=== PATIENT | male | born 1975 | race Two or more races ===

== ENCOUNTER 2016-08-22 16:35 | Emergency (ER) | payer SELFPAY ==
[~2016-08-22] VITALS: Ht 177.8 cm; Wt 81.6 kg
[2016-08-22] MEDS ORDERED: LORazepam 1mg tab ORAL ONE (16:45)
--- NOTE | 2016-08-22 16:48 | Emergency Room Report ---
History of Present Illness General Chief Complaint: Behavioral Complaint Source: Patient, EMS Present Illness HPI The patient was brought in by EMS. [facility] said that the patient had involuntary muscle movements but denied seizure activity. The patient complains of depression. He states that his left him his having problems with his business multiple other problems for the past 3 years. He's not taking medication for this aside from cannabis and alcohol. He denies any other ingestion today. He states he feels like he is going crazy and needs an evaluation of his head. He denies suicidal or homicidal ideation. No fevers, NVD, rashes, joint pain, CARTER, dyspnea. 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 [place] Reviewed Nursing Documentation: PMH: Agreed, PSxH: Agreed Nursing Documentation-PMH History Of Psychiatric Problem: Yes - depression Review of Systems All Other Systems: negative except mentioned in HPI Physical Exam Vital Signs Date Time Temp Pulse Resp B/P Pulse Ox O2 Delivery O2 Flow Rate FiO2 08/22/16 16:29 98.6 124 25 152/95 100 Room Air Sp02 EP Interpretation: reviewed, normal General Appearance: well appearing, no apparent distress, GCS 15 Head: normocephalic Eyes: bilateral eye PERRL - 4 mm bilat, bilateral eye Scleral Injection ENT: moist mucus membranes Neck: supple Respiratory: lungs clear, normal breath sounds Cardiovascular #1: tachycardia Cardiovascular #2: 2+ radial (L) Gastrointestinal: normal inspection, normal bowel sounds, non tender, no mass, non-distended Musculoskeletal: back normal, gait/station normal, normal range of motion Neurologic: alert, oriented x3, motor strength/tone normal, DTRs symmetric, sensory intact, cerebellar normal, normal gait, speech normal Psychiatric: no suicidal/homicidal ideation, anxious Skin: normal inspection, warm/dry Medical Decision Making Diagnostic Impression: Primary Impression: Behavioral change Additional Impressions: AMA Depression Qualified Codes: F32.9 - Major depressive disorder, single episode, unspecified ER Course The patient presents with agitation and depression. Differential includes major depression exacerbation, electrolyte imbalance, other toxic ingestion, amongst others. The patient has a nonfocal neurologic exam at this time and a CT is not indicated. We need to exclude rhabdomyolysis and other electrolyte abnormalities. The patient needs IV hydration. The patient will be evaluated EKG, chest x-ray and labs. The patient is refusing to have blood work done. He states he's afraid of needles. The patient denies suicidal ideation. I told him that he could if he doesn't get laboratory evaluation. He understands this. He states he is feeling better and refuses to have blood work done. He signed an AMA form knowing that he risks by leaving the hospital. He was invited to return if he changes his mind. No involuntary muscle movements, SI, HI on discharge. Purposeful and ambulating in NAD. Chest X-Ray Diagnostic Results Chest X-Ray Ordered: No Last Vital Signs Date Time Temp Pulse Resp B/P Pulse Ox O2 Delivery O2 Flow Rate FiO2 08/22/16 17:20 98.6 25 152/95 100 Room Air 08/22/16 16:29 124 Status: improved Disposition: AGAINST MEDICAL ADVICE Condition: Unknown Rizwan Tucker M.D. Aug 22, 2016 16:48
[2016-08-22 17:00] VITALS: BP 152/95
[2016-08-22 17:20] VITALS: BP 152/95
== END 2016-08-22 17:20 | disposition left against medical advice (07) ==
LOC: EDBD 16:35 → EMR 16:50
DX: R46.89 Other symptoms and signs involving appearance and behavior (principal); F32.9 Major depressive disorder, single episode, unspecified; Z53.21 Procedure and treatment not carried out due to patient leaving prior to being seen by health care provider; F10.20 Alcohol dependence, uncomplicated; F19.20 Other psychoactive substance dependence, uncomplicated
CPT/HCPCS: 99283

== ENCOUNTER 2019-06-02 14:15 | Outpatient (CLI) | payer MEDICAID ==
[~2019-06-02] VITALS: Ht 177.8 cm; Wt 110.2 kg
[2019-06-02 14:32] VITALS: BP 106/72
[2019-06-02] MEDS ORDERED: [UNRECOGNIZED DRUG - REMARK] (14:32)
--- NOTE | 2019-06-02 17:00 | Consultation ---
DATE OF CONSULTATION: 06/02/2019 CONSULTING PHYSICIAN: Thom Dotson M.D. CHIEF COMPLAINT: Rectal bleeding. HISTORY OF PRESENT ILLNESS: This is a 44-year-old male with complaint of rectal bleeding, sometimes mixed with stool, sometimes bright red blood per rectum. No significant abdominal pain. Also complained of chronic acid reflux disease. At this time, he only takes Tums for it. PAST MEDICAL HISTORY: 1. GERD. 2. Rectal bleeding. PAST SURGICAL HISTORY: None. MEDICATIONS: [id number] Tums and Prilosec. FAMILY HISTORY: No family history of GI malignancy. SOCIAL HISTORY: The patient drinks socially and smokes socially. Denies any IV drug abuse. ALLERGIES: Penicillin. MEDICATIONS: Please see medication reconciliation list. REVIEW OF SYSTEMS: A 10-point review of systems was performed and positive for rectal bleeding and GERD. PHYSICAL EXAMINATION: VITAL SIGNS: Temperature 98, blood pressure 100/72, pulse 87, respirations 20. HEENT: Normocephalic and atraumatic. Sclerae anicteric. NECK: Supple. No evidence of obvious lymphadenopathy. CARDIOVASCULAR: Regular rate and rhythm. Plus S1-S2. LUNGS: Clear to auscultation bilaterally. ABDOMEN: Positive bowel sounds. Soft, nontender. No rebound. No guarding. No peritoneal sign. EXTREMITIES: No cyanosis, no clubbing, no edema. ASSESSMENT AND PLAN: This is a 44-year-old male with rectal bleeding. The patient will need a colonoscopy. The patient was given instruction for colonoscopy and the prep. We will schedule him when he is approved by insurance. In terms of his chronic GERD, we are going to start him on omeprazole 40 mg p.o. daily. Thom Dotson M.D. DR: ZAIRE JOB#: [id number] CC:
== END 2019-06-02 16:15 | disposition home or self-care (01) ==
LOC: PAN 14:15
DX: K62.5 Hemorrhage of anus and rectum (principal); K21.9 Gastro-esophageal reflux disease without esophagitis; Z88.0 Allergy status to penicillin
CPT/HCPCS: G0463